=== PATIENT | male | born 1985 | race Caucasian/White ===

== ENCOUNTER 2020-09-11 09:24 | Emergency (ER) | payer OTHER ==
[~2020-09-11] VITALS: Ht 167.6 cm; Wt 63.6 kg
[2020-09-11 09:32] VITALS: TEMP 97.6
[2020-09-11 10:45] VITALS: BP 128/85; PULSE 79
== END 2020-09-11 10:45 | disposition home or self-care (01) ==
LOC: COL.ER 09:24
DX: S61.211A Laceration without foreign body of left index finger without damage to nail, initial encounter (principal); F17.290 Nicotine dependence, other tobacco product, uncomplicated; W26.8XXA Contact with other sharp object(s), not elsewhere classified, initial encounter; Y92.59 Other trade areas as the place of occurrence of the external cause; Y99.0 Civilian activity done for income or pay; Z23 Encounter for immunization